=== PATIENT | male | born 1945 | race Caucasian/White ===

== ENCOUNTER 2020-07-07 09:28 | Outpatient (CLI) | payer MEDICARE ==
[2020-07-07] MEDS ORDERED: MIDAZOLAM 1 MG/ML, 5ML ONE (10:25)
[2020-07-07] MEDS ORDERED: FLUMAZENIL 0.1 MG/1 ML, 5ML ONE (10:25)
[2020-07-07] MEDS ORDERED: FENTANYL PF 100 MCG/2ML ONE (10:25)
[2020-07-07] MEDS ORDERED: NALOXONE 1 MG/ML, 2ML ONE (10:25)
== END 2020-07-07 23:59 | disposition home or self-care (01) ==
LOC: RAD 09:28
PROVIDERS: ATTEND Pain Medicine Interventional Pain Medicine
DX: M54.5 Low back pain (principal); M51.36 Other intervertebral disc degeneration, lumbar region; M48.061 Spinal stenosis, lumbar region without neurogenic claudication; I10 Essential (primary) hypertension; G20 Parkinson's disease; Z95.5 Presence of coronary angioplasty implant and graft
CPT/HCPCS: 72148; 99156; 99157; J2250; J3010; J2310